=== PATIENT | female | born 1975 | race African-American/Black ===

== ENCOUNTER 2016-08-20 17:38 | Emergency (ER) | payer SELFPAY ==
[~2016-08-20] VITALS: Ht 167.6 cm; Wt 136.1 kg
[2016-08-20 17:55] VITALS: BP 161/94
[2016-08-20 18:05] LABS: BILIRUBIN,URINE NEGATIVE (NEG); GLUCOSE,URINE NEGATIVE (NEG); NITRITE,URINE NEGATIVE (NEG); PH,URINE 5.5; PROTEIN,URINE NEGATIVE (NEG-TRACE)
--- NOTE | 2016-08-20 18:10 | PHYS DOC ---
Past Medical History Past Medical History: No Pertinent History Past Surgical History: Alcohol Use: Occasionally Drug Use: None Adult General Chief Complaint Chief Complaint: URINARY FREQUENCY HPI HPI Patient is a 41 year old female presents emergency room with a complaint of ongoing urinary frequency, urgency and pressure is been present for approximately 2 weeks. Patient states that she was seen at [facility] urgent care last week and was diagnosed with urinary tract infection. She was prescribed Bactrim. She states that she called back for the end of last week and was informed that she also has bacterial vaginosis. She was as prescribed Flagyl for this as well. Patient states that she continues to have urinary frequency and discomfort. Patient denies any history of genitourinary disease. She denies any history of genitourinary surgeries. Patient states that she is currently on Depo-Provera with last menstrual period approximately 2 years ago. Patient has any fevers. She does report chills. She denies flank pain, nausea or vomiting. Review of Systems Review of Systems Constitutional: Denies fever or chills [] Eyes: Denies change in visual acuity, redness, or eye pain [] HENT: Denies nasal congestion or sore throat [] Respiratory: Denies cough or shortness of breath [] Cardiovascular: No additional information not addressed in HPI [] GI: Denies abdominal pain, nausea, vomiting, bloody stools or diarrhea [] : Denies dysuria or hematuria [] Musculoskeletal: Denies back pain or joint pain [] Integument: Denies rash or skin lesions [] Neurologic: Denies headache, focal weakness or sensory changes [] Endocrine: Denies polyuria or polydipsia [] Allergies Allergies Allergies Coded Allergies Type Severity Reaction Last Updated Verified No Known Drug Allergies 05/09/15 No Physical Exam Physical Exam Constitutional: Well developed, well nourished, no acute distress, non-toxic appearance. [] HENT: Normocephalic, atraumatic, bilateral external ears normal, oropharynx moist, no oral exudates, nose normal. [] Eyes: PERRLA, EOMI, conjunctiva normal, no discharge. [] Neck: Normal range of motion, no tenderness, supple, no stridor. [] Cardiovascular:Heart rate regular rhythm, no murmur [] Lungs & Thorax: Bilateral breath sounds clear to auscultation [] Abdomen: Bowel sounds normal, soft, no tenderness, no masses, no pulsatile masses. [] Skin: Warm, dry, no erythema, no rash. [] Back: No tenderness, no CVA tenderness. [] Extremities: No tenderness, no cyanosis, no clubbing, ROM intact, no edema. [] Neurologic: Alert and oriented X 3, normal motor function, normal sensory function, no focal deficits noted. [] Psychologic: Affect normal, judgement normal, mood normal. [] Current Patient Data Vital Signs Vital Signs Date Time Temp Pulse Resp B/P Pulse Ox O2 Delivery O2 Flow Rate FiO2 08/20/16 17:55 97.9 72 18 98 Room Air 97.9 Lab Values Laboratory Tests Test 08/20/16 17:51 08/20/16 18:03 Urine Collection Type Unknown Urine Color Dk yellow Urine Clarity Clear Urine pH 5.5 Urine Specific [place] 1.025 Urine Protein Negativemg/dL (NEG-TRACE) Urine Glucose (UA) Negativemg/dL (NEG) Urine Ketones (Stick) Negativemg/dL (NEG) Urine Blood Negative (NEG) Urine Nitrite Negative (NEG) Urine Bilirubin Negative (NEG) Urine Urobilinogen Dipstick 1.0mg/dL (0.2 mg/dL) Urine Leukocyte Esterase Negative (NEG) Urine RBC 0/HPF (0-2) Urine WBC Occ/HPF (0-4) Urine Squamous Epithelial Cells Many/LPF Urine Bacteria Moderate/HPF (0-FEW) Urine Mucus Marked/LPF POC Urine HCG, Qualitative Hcg negative (Negative) EKG EKG [] Radiology/Procedures Radiology/Procedures [] Course & Med Decision Making Course & Med Decision Making Pertinent Labs and Imaging studies reviewed. (See chart for details) [] Dragon Disclaimer Dragon Disclaimer This electronic medical record was generated, in whole or in part, using a voice recognition dictation system. Departure Departure Impression: Primary Impression: Urinary tract infection Disposition: 01 HOME, SELF-CARE Condition: GOOD Referrals: NO PCP (PCP) Patient Instructions: Urinary Tract Infection, [id number] Additional Instructions: 1. Take the medication as prescribed. Stop taking the Bactrim. Continue taking the Flagyl for BV. 2. Review the discharge instructions provided for reasons to return the emergency department. 3. Follow-up with a primary care doctor's office within the next 5-7 days. If you do not have one, then please use the pamphlet provided for assistance in finding one. Scripts Phenazopyridine Hcl (Pyridium)200 Mg [id number] Mg PO TID #9 TAB Prov:NELLIE AMADOR 08/20/16 Nitrofurantoin Macrocrystal (Nitrofurantoin)100 Mg Capsule1 Cap PO BID urinary tract infection #14 CAP Prov:NELLIE AMADOR 08/20/16 NELLIE AMADOR Aug 20, 2016 18:10
[2016-08-20 18:23] LABS: BACTERIA,URINE MODERATE /HPF (0-FEW); RBC,URINE 0 /HPF (0-2); SQUAMOUS EPITHELIAL CELL,UR MANY /LPF; WBC,URINE OCC /HPF (0-4)
[2016-08-20] MEDS ORDERED: PHEN-318 PO (18:33)
[2016-08-20] MEDS ORDERED: NITR100C PO (18:33)
== END 2016-08-20 18:38 | disposition home or self-care (01) ==
LOC: ER 17:38
DX: N39.0 Urinary tract infection, site not specified (principal)
CPT/HCPCS: 81001; 81025; 84703; 87086; 99284

== ENCOUNTER 2017-10-11 22:25 | Emergency (ER) | payer BC ==
[2017-10-11] MEDS ORDERED: hydrALAZINE 20 MG/ML VIAL. IVP (22:45)
== END 2017-10-11 23:12 | disposition home or self-care (01) ==
LOC: ER 22:25
DX: J40 Bronchitis, not specified as acute or chronic (principal); I10 Essential (primary) hypertension
CPT/HCPCS: 99283

== ENCOUNTER 2019-07-05 16:24 | Emergency (ER) | payer OTHER ==
[~2019-07-05] VITALS: Ht 167.6 cm; Wt 150.0 kg
[~2019-07-05 16:24] MED LIST: AZIT250T6 PO; GUAI118L20 PO; NAPR-514 PO; NITR100C PO; PHEN-318 PO; PRED20TA PO
--- NOTE | 2019-07-05 16:59 | PHYS DOC ---
Past Medical History Past Medical History: Hypertension (GISELLE SILVA APRN) Past Surgical History: (GISELLE SILVA APRN) Alcohol Use: Occasionally Drug Use: None (GISELLE SILVA APRN) Adult General Chief Complaint Chief Complaint: DIZZY/LIGHT HEADED HPI HPI Patient is a 44 year old female who presents with 1 week of dizziness and headache to the back of her head and blurred vision. Patient states she currently has no pain today. Patient states she began having pain to the back of her head that is throbbing in her visual blurring and that she will become dizzy. Patient states this been coming and going for the last week. She states she went to urgent care on Friday and they told her she had vertigo but did not send her home with anything. Patient does state that when she moves her head back and forth or moves her eyes to look around the dizziness is worse. Patient states that she does have dizziness at this time. (GISELLE SILVA APRN) Review of Systems Review of Systems Neurologic: headache, dizziness. focal weakness or sensory changes [] All other systems were reviewed and found to be within normal limits, except as documented in this note. (GISELLE SILVA APRN) Current Medications Current Medications Current Medications Medications (Trade) Dose Ordered Sig/Jett Start Time Stop Time Status Last Admin Dose Admin Meclizine HCl (Antivert) 25 mg 1X ONCE 07/05/19 17:00 07/05/19 17:01 DC 07/05/19 17:37 25 MG (HUMBLE GILLESPIE APRN) Allergies Allergies Allergies Coded Allergies Type Severity Reaction Last Updated Verified No Known Drug Allergies 05/09/15 No (HUMBLE GILLESPIE APRN) Physical Exam Physical Exam Constitutional: Well developed, well nourished, no acute distress, non-toxic appearance. [] HENT: Normocephalic, atraumatic, bilateral external ears normal, oropharynx moist, no oral exudates, nose normal. [] Eyes: PERRLA, EOMI, conjunctiva normal, no discharge. [] Neck: Normal range of motion, no tenderness, supple, no stridor. [] Cardiovascular:Heart rate regular rhythm, no murmur [] Lungs & Thorax: Bilateral breath sounds clear to auscultation [] Abdomen: Bowel sounds normal, soft, no tenderness, no masses, no pulsatile masses. [] Skin: Warm, dry, no erythema, no rash. [] Back: No tenderness, no CVA tenderness. [] Extremities: No tenderness, no cyanosis, no clubbing, ROM intact, no edema. [] Neurologic: Alert and oriented X 3, normal motor function, normal sensory function, no focal deficits noted. [] Psychologic: Affect normal, judgement normal, mood normal. Normal Physical Exam [] (GISELLE SILVA APRN) Current Patient Data Vital Signs Vital Signs Date Time Temp Pulse Resp B/P (MAP) Pulse Ox O2 Delivery O2 Flow Rate FiO2 07/05/19 17:27 98.0 91 16 141/91 (108) 100 Room Air 98.0 (HUMBLE GILLESPIE APRN) Lab Values Laboratory Tests Test 07/05/19 17:39 07/05/19 17:46 07/05/19 17:47 07/05/19 18:48 White Blood Count 6.7 x10^3/uL (4.0-11.0) Red Blood Count 5.29 x10^6/uL (3.50-5.40) Hemoglobin 13.4 g/dL (12.0-15.5) Hematocrit 40.9 % (36.0-47.0) Mean Corpuscular Volume 77 fL (79-100) L Mean Corpuscular Hemoglobin 25 pg (25-35) Mean Corpuscular Hemoglobin Concent 33 g/dL (31-37) Red Cell Distribution Width 15.1 % (11.5-14.5) H Platelet Count 251 x10^3/uL (140-400) Neutrophils (%) (Auto) 57 % (31-73) Lymphocytes (%) (Auto) 31 % (24-48) Monocytes (%) (Auto) 7 % (0-9) Eosinophils (%) (Auto) 4 % (0-3) H Basophils (%) (Auto) 1 % (0-3) Neutrophils # (Auto) 3.8 x10^3/uL (1.8-7.7) Lymphocytes # (Auto) 2.1 x10^3/uL (1.0-4.8) Monocytes # (Auto) 0.5 x10^3/uL (0.0-1.1) Eosinophils # (Auto) 0.2 x10^3/uL (0.0-0.7) Basophils # (Auto) 0.1 x10^3/uL (0.0-0.2) Urine Collection Type Unknown Urine Color Yellow Urine Clarity Clear Urine pH 6.0 Urine Specific [place] 1.025 Urine Protein Negative mg/dL (NEG-TRACE) Urine Glucose (UA) Negative mg/dL (NEG) Urine Ketones (Stick) Negative mg/dL (NEG) Urine Blood Negative (NEG) Urine Nitrite Negative (NEG) Urine Bilirubin Negative (NEG) Urine Urobilinogen Dipstick 1.0 mg/dL (0.2 mg/dL) Urine Leukocyte Esterase Negative (NEG) Urine RBC 0 /HPF (0-2) Urine WBC 1-4 /HPF (0-4) Urine Squamous Epithelial Cells Mod /LPF Urine Bacteria Moderate /HPF (0-FEW) Urine Mucus Mod /LPF Urine Opiates Screen Neg (NEG) Urine Methadone Screen Neg (NEG) Urine Barbiturates Neg (NEG) Urine Phencyclidine Screen Neg (NEG) Urine Amphetamine/Methamphetamine Neg (NEG) Urine Benzodiazepines Screen Neg (NEG) Urine Cocaine Screen Neg (NEG) Urine Cannabinoids Screen Neg (NEG) Urine Ethyl Alcohol Neg (NEG) POC Urine HCG, Qualitative Hcg negative (Negative) Sodium Level 141 mmol/L (136-145) Potassium Level 3.6 mmol/L (3.5-5.1) Chloride Level 103 mmol/L (98-107) Carbon Dioxide Level 29 mmol/L (21-32) Anion Gap 9 (6-14) Blood Urea Nitrogen 21 mg/dL (7-20) H Creatinine 1.0 mg/dL (0.6-1.0) Estimated GFR (Cockcroft-Gault) 73.2 BUN/Creatinine Ratio 21 (6-20) H Glucose Level 102 mg/dL (70-99) H Calcium Level 9.2 mg/dL (8.5-10.1) Total Bilirubin 0.3 mg/dL (0.2-1.0) Aspartate Amino Transferase (AST) 11 U/L (15-37) L Alanine Aminotransferase (ALT) 23 U/L (14-59) Alkaline Phosphatase 139 U/L (46-116) H Troponin I Quantitative < 0.017 ng/mL (0.000-0.055) Total Protein 7.8 g/dL (6.4-8.2) Albumin 3.6 g/dL (3.4-5.0) Albumin/Globulin Ratio 0.9 (1.0-1.7) L Thyroid Stimulating Hormone (TSH) 2.815 uIU/mL (0.358-3.74) Free Thyroxine 0.92 ng/dL (0.76-1.46) Laboratory Tests 07/05/19 17:39 Laboratory Tests 07/05/19 18:48 (HUMBLE GILLESPIE APRN) Lab Values Laboratory Tests Test 07/05/19 17:39 07/05/19 17:46 07/05/19 17:47 White Blood Count 6.7 x10^3/uL (4.0-11.0) Red Blood Count 5.29 x10^6/uL (3.50-5.40) Hemoglobin 13.4 g/dL (12.0-15.5) Hematocrit 40.9 % (36.0-47.0) Mean Corpuscular Volume 77 fL (79-100) L Mean Corpuscular Hemoglobin 25 pg (25-35) Mean Corpuscular Hemoglobin Concent 33 g/dL (31-37) Red Cell Distribution Width 15.1 % (11.5-14.5) H Platelet Count 251 x10^3/uL (140-400) Neutrophils (%) (Auto) 57 % (31-73) Lymphocytes (%) (Auto) 31 % (24-48) Monocytes (%) (Auto) 7 % (0-9) Eosinophils (%) (Auto) 4 % (0-3) H Basophils (%) (Auto) 1 % (0-3) Neutrophils # (Auto) 3.8 x10^3/uL (1.8-7.7) Lymphocytes # (Auto) 2.1 x10^3/uL (1.0-4.8) Monocytes # (Auto) 0.5 x10^3/uL (0.0-1.1) Eosinophils # (Auto) 0.2 x10^3/uL (0.0-0.7) Basophils # (Auto) 0.1 x10^3/uL (0.0-0.2) Urine Collection Type Unknown Urine Color Yellow Urine Clarity Clear Urine pH 6.0 Urine Specific [place] 1.025 Urine Protein Negative mg/dL (NEG-TRACE) Urine Glucose (UA) Negative mg/dL (NEG) Urine Ketones (Stick) Negative mg/dL (NEG) Urine Blood Negative (NEG) Urine Nitrite Negative (NEG) Urine Bilirubin Negative (NEG) Urine Urobilinogen Dipstick 1.0 mg/dL (0.2 mg/dL) Urine Leukocyte Esterase Negative (NEG) Urine RBC 0 /HPF (0-2) Urine WBC 1-4 /HPF (0-4) Urine Squamous Epithelial Cells Mod /LPF Urine Bacteria Moderate /HPF (0-FEW) Urine Mucus Mod /LPF Urine Opiates Screen Neg (NEG) Urine Methadone Screen Neg (NEG) Urine Barbiturates Neg (NEG) Urine Phencyclidine Screen Neg (NEG) Urine Amphetamine/Methamphetamine Neg (NEG) Urine Benzodiazepines Screen Neg (NEG) Urine Cocaine Screen Neg (NEG) Urine Cannabinoids Screen Neg (NEG) Urine Ethyl Alcohol Neg (NEG) POC Urine HCG, Qualitative Hcg negative (Negative) Laboratory Tests 07/05/19 17:39 (GISELLE SILVA APRN) EKG EKG Sinus rhythm and no STEMI.[] Interpretation Time: [address] Kenney (GISELLE SILVA APRN) Radiology/Procedures Radiology/Procedures [] (GISELLE SILVA APRN) Radiology/Procedures [facility] [address] [place] [address] IMAGING REPORT Signed PATIENT: CRICKET KELLY LACCOUNT: [id number] : 1975 LOCATION: ER AGE: 44 SEX: F EXAM STATUS: REG ER ORD. PHYSICIAN: GISELLE SILVA APRN REASON: pain, dizziness PROCEDURE: CT HEAD AND CERVICAL SPINE WO EXAM: CT HEAD WITHOUT IV CONTRAST CLINICAL HISTORY: Pain, dizziness COMPARISON: None. TECHNIQUE: Routine CT of the head without contrast. Soft tissues and bone windows were reviewed. PQRS compliance statement - One or more of the following individualized dose reduction techniques were utilized for this study: 1. Automated exposure control 2. Adjustment of the mA and/or kV according to patient size 3. Use of iterative reconstruction technique FINDINGS: There is no evidence of hemorrhage, mass or extra-axial fluid collection. Castillo-white differentiation is maintained with no evidence of edema. There is no mass effect or shift of the intracranial structures. The ventricles, basilar cisterns and cortical sulci are normal in size and configuration for the patients stated age. The cerebellum and brainstem are unremarkable. The calvarium demonstrates no evidence of fracture or focal lesion. There is normal aeration of the visualized paranasal sinuses and mastoid air cells. The visualized portions of the orbits are normal. IMPRESSION: No evidence for acute intracranial process EXAM: CT CERVICAL SPINE WITHOUT IV CONTRAST CLINICAL HISTORY: COMPARISON: None available. TECHNIQUE: Helical CT of the cervical spine was performed. Axial, coronal and sagittal reformatted images were also performed. PQRS compliance statement - One or more of the following individualized dose reduction techniques were utilized for this study: 1. Automated exposure control 2. Adjustment of the mA and/or kV according to patient size 3. Use of iterative reconstruction technique FINDINGS: Vertebral body heights are preserved. Mild C5-6 disc height loss. Associated anterior posterior endplate osteophytes are seen. No spondylolisthesis. Atlantodental degenerative changes are seen. Focal reversal of the normal cervical lordosis, apex C5. Marked enlargement of the right thyroid with equivocal underlying mass measuring 4.5 cm resulting in leftward deviation of the trachea and substernal extension. IMPRESSION: 1. No acute fracture or subluxation. 2. Degenerative changes, most prominent at C5-6. 3. Prominent right thyroid enlargement with equivocal underlying mass results in leftward deviation of the trachea. This can be further assessed by thyroid ultrasound. Electronically signed by: Alexis Boston MD (07/05/2019 6:56 PM) [facility] DICTATED and SIGNED BY: ALEXIS BOSTON MD DATE: 07/05/191855 (HUMBLE GILLESPIE APRN) Impressions: [facility] [address] [place] [address] IMAGING REPORT Signed PATIENT: CRICKET KELLY LACCOUNT: [id number] : 1975 LOCATION: ER AGE: 44 SEX: F EXAM STATUS: REG ER ORD. PHYSICIAN: GISELLE SILVA APRN REASON: pain, dizziness PROCEDURE: CT HEAD AND CERVICAL SPINE WO EXAM: CT HEAD WITHOUT IV CONTRAST CLINICAL HISTORY: Pain, dizziness COMPARISON: None. TECHNIQUE: Routine CT of the head without contrast. Soft tissues and bone windows were reviewed. PQRS compliance statement - One or more of the following individualized dose reduction techniques were utilized for this study: 1. Automated exposure control 2. Adjustment of the mA and/or kV according to patient size 3. Use of iterative reconstruction technique FINDINGS: There is no evidence of hemorrhage, mass or extra-axial fluid collection. Castillo-white differentiation is maintained with no evidence of edema. There is no mass effect or shift of the intracranial structures. The ventricles, basilar cisterns and cortical sulci are normal in size and configuration for the patients stated age. The cerebellum and brainstem are unremarkable. The calvarium demonstrates no evidence of fracture or focal lesion. There is normal aeration of the visualized paranasal sinuses and mastoid air cells. The visualized portions of the orbits are normal. IMPRESSION: No evidence for acute intracranial process EXAM: CT CERVICAL SPINE WITHOUT IV CONTRAST CLINICAL HISTORY: COMPARISON: None available. TECHNIQUE: Helical CT of the cervical spine was performed. Axial, coronal and sagittal reformatted images were also performed. PQRS compliance statement - One or more of the following individualized dose reduction techniques were utilized for this study: 1. Automated exposure control 2. Adjustment of the mA and/or kV according to patient size 3. Use of iterative reconstruction technique FINDINGS: Vertebral body heights are preserved. Mild C5-6 disc height loss. Associated anterior posterior endplate osteophytes are seen. No spondylolisthesis. Atlantodental degenerative changes are seen. Focal reversal of the normal cervical lordosis, apex C5. Marked enlargement of the right thyroid with equivocal underlying mass measuring 4.5 cm resulting in leftward deviation of the trachea and substernal extension. IMPRESSION: 1. No acute fracture or subluxation. 2. Degenerative changes, most prominent at C5-6. 3. Prominent right thyroid enlargement with equivocal underlying mass results in leftward deviation of the trachea. This can be further assessed by thyroid ultrasound. Electronically signed by: Alexis Boston MD (07/05/2019 6:56 PM) [facility] [place] DICTATED and SIGNED BY: ALEXIS BOSTON MD DATE: 07/05/191855 (GISELLE SILVA APRN) Course & Med Decision Making Course & Med Decision Making Alert and oriented. Speaks in full clear sentences. PERRLA. She was at work tod ay when she had an episode of getting very lightheaded, she was given pass out but she did not pass out. Denies hitting her head or any falls recently. Denies any injury to her neck. She states that she awoke about a week ago and started having pain on her bilateral sides of her neck that is more so with movement. No tenderness to the neck with palpation. No swelling to her neck or deformities. Patient denies nausea, vomiting, Abdominal pain, fevers, back pain, dysuria, chest pain, shortness of air, numbness or tingling, weakness. Moves all extremities equally. Ambulatory with steady gait. No weaknesses are noted. No nystagmus noted. I have ordered a dose of meclizine. 1905: Still waiting on Blood work to be completed. Report off to Humble BONILLA (GISELLE SILVA APRN) Course & Med Decision Making I received patient from IRENE Muro at 190. I examined patient and agree with note above. Patient did not that when she gets dizzy she has L ear pain. This coronado pports the diagnosis of vertigo. The patient also reports that the Meclizine improved symptoms. Labs are unremarkable (I did add TSH and Free T4) based off of radiology report. Discussed with patient the findings of mass on Thyroid and recommended that she follow up with ENT for management of this mass and the vertigo. I will send home with Meclizine. IMPRESSION: 1. No acute fracture or subluxation. 2. Degenerative changes, most prominent at C5-6. 3. Prominent right thyroid enlargement with equivocal underlying mass results in leftward deviation of the trachea. This can be further assessed by thyroid ultrasound. Electronically signed by: Alexis Boston MD (07/05/2019 6:56 PM) [facility] [place] (HUMBLE GILLESPIE APRN) Course & Med Decision Making I was not involved in the care of this patient after 1800 on 07/05/2019 (YOLIE KENNEY MD) Dragon Disclaimer Dragon Disclaimer This electronic medical record was generated, in whole or in part, using a voice recognition dictation system. (GISELLE SILVA APRN) Departure Departure Impression: Primary Impression: Dizziness Additional Impression: Abnormal CT scan Disposition: HOME, SELF-CARE Condition: STABLE Referrals: NO PCP (PCP) MILADY RANDALL MD Patient Instructions: Vertigo Additional Instructions: Thank you for visiting [facility]. We appreciate you trusting us with your care. If any additional problems come up don't hesitate to return to visit us. Please follow up with your primary care provider so they can plan additional care if needed and know about the problem that you had. If symptoms worsen come back to the Emergency Department. Any concerning symptoms that start such as chest pain, shortness of air, weakness or numbness on one side of the body, running high fevers or any other concerning symptoms return to the ER. Please fill your medications at any pharmacy and follow the prescription instructions. Please follow up with ENT. Scripts Meclizine Hcl (MECLIZINE HCL) 25 Mg Tablet 1 TAB PO PRN TID PRN for DIZZINESS, #30 TAB Prov: HUMBLE GILLESPIE APRN 07/05/19 Problem Qualifiers GISELLE SILVA APRN Jul 05, 2019 16:58 HUMBLE GILLESPIE APRN Jul 05, 2019 20:24 YOLIE KENNEY MD Jul 06, 2019 13:52
[2019-07-05] MEDS: MECLIZINE HCL 12.5 MG TABLET. PO ONE (17:37)
[2019-07-05 17:49] LABS: BASO # 0.1 x10^3/uL (0.0-0.2); BASO % 1 % (0-3); EOS # 0.2 x10^3/uL (0.0-0.7); EOS % 4 % (0-3); HEMATOCRIT 40.9 % (36.0-47.0); HEMOGLOBIN 13.4 g/dL (12.0-15.5); LYMPH # 2.1 x10^3/uL (1.0-4.8); LYMPH % 31 % (24-48); MEAN CORPUSCULAR HEMOGLOBIN 25 pg (25-35); MEAN CORPUSCULAR HGB CONC 33 g/dL (31-37); MEAN CORPUSCULAR VOLUME 77 fL (79-100); MONO # 0.5 x10^3/uL (0.0-1.1); MONO % 7 % (0-9); NEUT # 3.8 x10^3/uL (1.8-7.7); NEUT % 57 % (31-73); PLATELET COUNT 251 x10^3/uL (140-400); RED BLOOD COUNT 5.29 x10^6/uL (3.50-5.40); RED CELL DISTRIBUTION WIDTH 15.1 % (11.5-14.5); WHITE BLOOD COUNT 6.7 x10^3/uL (4.0-11.0)
--- NOTE | 2019-07-05 17:56 | EKG ---
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
[2019-07-05 18:03] LABS: BILIRUBIN,URINE NEGATIVE (NEG); CLARITY,URINE CLEAR; COLOR,URINE YELLOW; NITRITE,URINE NEGATIVE (NEG); PROTEIN,URINE NEGATIVE (NEG-TRACE)
[2019-07-05 18:08] LABS: BARBITURATES NEG (NEG); BENZODIAZEPINES NEG (NEG); CANNABINOIDS NEG (NEG); COCAINE NEG (NEG); METHADONE NEG (NEG); OPIATES NEG (NEG); PHENCYCLIDINE NEG (NEG)
[2019-07-05 18:09] LABS: AMPHETAMINE/METHAMPHETAMINE NEG (NEG); RBC,URINE 0 /HPF (0-2); SQUAMOUS EPITHELIAL CELL,UR MOD /LPF
[2019-07-05 18:10] LABS: BACTERIA,URINE MODERATE /HPF (0-FEW)
--- NOTE | 2019-07-05 18:59 | RAD ---
EXAM: CT HEAD WITHOUT IV CONTRAST CLINICAL HISTORY: Pain, dizziness COMPARISON: None. TECHNIQUE: Routine CT of the head without contrast. Soft tissues and bone windows were reviewed. PQRS compliance statement - One or more of the following individualized dose reduction techniques were utilized for this study: 1. Automated exposure control 2. Adjustment of the mA and/or kV according to patient size 3. Use of iterative reconstruction technique FINDINGS: There is no evidence of hemorrhage, mass or extra-axial fluid collection. Castillo-white differentiation is maintained with no evidence of edema. There is no mass effect or shift of the intracranial structures. The ventricles, basilar cisterns and cortical sulci are normal in size and configuration for the patients stated age. The cerebellum and brainstem are unremarkable. The calvarium demonstrates no evidence of fracture or focal lesion. There is normal aeration of the visualized paranasal sinuses and mastoid air cells. The visualized portions of the orbits are normal. IMPRESSION: No evidence for acute intracranial process EXAM: CT CERVICAL SPINE WITHOUT IV CONTRAST CLINICAL HISTORY: COMPARISON: None available. TECHNIQUE: Helical CT of the cervical spine was performed. Axial, coronal and sagittal reformatted images were also performed. PQRS compliance statement - One or more of the following individualized dose reduction techniques were utilized for this study: 1. Automated exposure control 2. Adjustment of the mA and/or kV according to patient size 3. Use of iterative reconstruction technique FINDINGS: Vertebral body heights are preserved. Mild C5-6 disc height loss. Associated anterior posterior endplate osteophytes are seen. No spondylolisthesis. Atlantodental degenerative changes are seen. Focal reversal of the normal cervical lordosis, apex C5. Marked enlargement of the right thyroid with equivocal underlying mass measuring 4.5 cm resulting in leftward deviation of the trachea and substernal extension. IMPRESSION: 1. No acute fracture or subluxation. 2. Degenerative changes, most prominent at C5-6. 3. Prominent right thyroid enlargement with equivocal underlying mass results in leftward deviation of the trachea. This can be further assessed by thyroid ultrasound. Electronically signed by: Alexis Bauer MD (07/05/2019 6:56 PM) [facility] [place]
[2019-07-05 19:09] LABS: CALCIUM 9.2 mg/dL (8.5-10.1); GFR 73.2; POTASSIUM 3.6 mmol/L (3.5-5.1)
[2019-07-05 19:14] LABS: ALBUMIN 3.6 g/dL (3.4-5.0); ALBUMIN/GLOBULIN RATIO 0.9 (1.0-1.7); TOTAL BILIRUBIN 0.3 mg/dL (0.2-1.0); TOTAL PROTEIN 7.8 g/dL (6.4-8.2)
[2019-07-05 19:35] LABS: FREE T4 0.92 ng/dL (0.76-1.46); THYROID STIM HORMONE (TSH) 2.815 uIU/mL (0.358-3.74)
[2019-07-05] MEDS ORDERED: MECL-75 PO (20:24)
[2019-07-05 20:30] VITALS: BP 132/90
== END 2019-07-05 20:44 | disposition home or self-care (01) ==
LOC: ER 16:24
DX: R42 Dizziness and giddiness (principal); R51 Headache; H53.8 Other visual disturbances; I10 Essential (primary) hypertension; R93.0 Abnormal findings on diagnostic imaging of skull and head, not elsewhere classified
CPT/HCPCS: 36415; 70450; 72125; 80053; 80307; 81001; 81025; 84439; 84443; 84484; 85025; 87086; 93005; 99285; J8597